=== PATIENT | female | born 1970 | race African-American/Black ===

== ENCOUNTER 2019-12-01 16:37 | Emergency (ER) | payer SELFPAY ==
[2019-12-01] MEDS ORDERED: Ketorolac Tromethamine 30 MG/ML VIAL ONE (17:02)
[2019-12-01] MEDS ORDERED: Acetaminophen 500 MG TAB ONE (17:02)
[2019-12-01] MEDS ORDERED: Metoclopramide HCl 10 MG/2 ML VIAL ONE (17:02)
[2019-12-01] MEDS ORDERED: diphenhydrAMINE 50 MG/ML VIAL ONE (17:02)
== END 2019-12-01 19:30 | disposition home or self-care (01) ==
LOC: ERS 16:37
DX: R51 Headache (principal); I10 Essential (primary) hypertension; J45.909 Unspecified asthma, uncomplicated; D64.9 Anemia, unspecified; Z79.899 Other long term (current) drug therapy
CPT/HCPCS: 96365; 96366; 96375; J1200; J1885; J2765